=== PATIENT | female | born 1975 | race African-American/Black ===

== ENCOUNTER → 2018-02-23 | Outpatient (CLI) | payer OTHER ==
[~2018-02-23] MED LIST: FAMCYCLOVIR 50500 M1 PO; KEFLEX500 MG PO; LOSARTAN POTAS100 MG PO; MEDROL DOSPAK21 TAB PO; NOHOMEMEDICATIONS; NORVASC5 MG PO
== END ==
LOC: RAD 11:46
DX: Z12.31 Encounter for screening mammogram for malignant neoplasm of breast (principal)